=== PATIENT | male | born 1990 | race Two or more races ===

== ENCOUNTER 2016-12-02 02:16 | Emergency (ER) | payer OTHER ==
[2016-12-02] MEDS ORDERED: NS 0.9% 1000 ML* 2,000 ML IV ONE (02:31)
[2016-12-02] MEDS ORDERED: Morphine INJ* 2 MG/ML 1 ML CARPUJECT IV ONE (02:31)
[2016-12-02] MEDS ORDERED: Ondansetron INJ* 2 MG/ML VIAL IV ONE (02:31)
[2016-12-02] MEDS ORDERED: Acetaminophen TAB* 325 MG PO ONE ×2 (02:33→06:17)
[2016-12-02] MEDS ORDERED: Morphine INJ* 2 MG/ML 1 ML SYRINGE (TWO MG - NEW SYRINGE VERSION) ONE (03:00)
[2016-12-02 03:11] LABS: Hematocrit 45 % (42-52); Hemoglobin 15.6 g/dl (14.0-18.0); Mean Corpuscular HGB Conc 35 g/dl (31-36); Mean Corpuscular Hemoglobin 31 pg (27-31); Mean Corpuscular Volume 90 fL (80-94); Mean Platelet Volume 8 um3 (7.4-10.4); Red Cell Distribution Width 13 % (10.5-15); White Blood Count 6.6 10^3/ul (3.5-10.8)
[2016-12-02 03:26] LABS: Albumin 4.1 g/dL (3.2-5.2); BUN/Creatinine Ratio 15.5 (8-20); Calcium 8.8 mg/dL (8.6-10.3); EGFR African American 96.4 (>60); Globulin 2.4 g/dL (2-4); Potassium 3.6 mmol/L (3.5-5.0); Total Bilirubin 0.6 mg/dL (0.2-1.0); Total Protein 6.5 g/dL (6.4-8.9)
[2016-12-02 04:57] LABS: Urine Bacteria Absent (Absent); Urine Bilirubin Negative (Negative); Urine Glucose Negative (Negative); Urine Nitrite Negative (Negative)
[2016-12-02] MEDS ORDERED: Iohexol 300* (CONTRAST) 10 ML SDV IV ONE (05:36)
[2016-12-02] MEDS ORDERED: Ketorolac INJ* 30 MG/ML 1 ML VIAL IV PUSH ONE (06:08)
--- NOTE | 2016-12-02 06:21 | ED ---
Bria Ulloa Rebecca, scribed for Steve Silvermanuel on 12/02/16 at 0232 . Complex/Multi-Sys Presentation - HPI Summary HPI Summary: Pt is a 26 y/o M who presents to ED c/o N/V/D and fever. Sx began yesterday at approximately 1600 and have been progressively worsening since onset. 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 Additionally c/o myalgias and abdominal pain with associated pain being severe, ranked 8/10. Took Ibuprofen at 0200. Denies CP and sore throat. - History Of Current Complaint Chief Complaint: EDNauseaVomitDiarrh Hx Obtained From: Patient Onset/Duration: Lasting Hours, Still Present Severity Currently: Severe - 09/19 Location: Pain At: - Abdomen and myalgias Aggravating Factor(s): Nothing Alleviating Factor(s): Nothing Associated Signs And Symptoms: Positive: Nausea, Vomiting, Diarrhea, Abdominal Pain, Fever. Negative: Chest Pain - Allergies/Home Medications Allergies/Adverse Reactions: Allergies Allergy/AdvReac Type Severity Reaction Status Date / Time No Known Allergies Allergy Verified 12/02/16 02:21 PMH/Surg Hx/FS Hx/Imm Hx Endocrine/Hematology History: Denies: Hx Diabetes, Hx Systemic Lupus Erythematosus Cardiovascular History: Denies: Hx Congestive Heart Failure, Hx Hypertension, Hx Pacemaker/ICD GI History: Denies: Other GI Disorders History: Denies: Hx Renal Disease Musculoskeletal History: Denies: Hx Rheumatoid Arthritis Sensory History: Denies: Hx Hearing Aid Neurological History: Reports: Other Neuro Impairments/Disorders - Concussion syndrome Psychiatric History: Denies: Hx Panic Disorder - Cancer History Hx Chemotherapy: No Infectious Disease History: No Infectious Disease History: Denies: Traveled Outside the [place] in Last 30 Days - Family History Known Family History: Negative: Diabetes - Social History Alcohol Use: None Substance Use Type: Reports: Prescribed, Sedatives Smoking Status (MU): Never Smoked Tobacco Review of Systems Positive: Fever Negative: Sore Throat Negative: Chest Pain Positive: Abdominal Pain, Vomiting, Diarrhea, Nausea Positive: Myalgia All Other Systems Reviewed And Are Negative: Yes Physical Exam - Summary Physical Exam Summary: Appearance: Well appearing, no pain distress Skin: warm, dry, reflects adequate perfusion Head/face: normal Eyes: EOMI, AMANDA ENT: normal Neck: supple, nontender Respiratory: CTA, breath sounds present Cardiovascular: tachycardic, pulses symmetrical Abdomen: tenderness in the RLQ and LLQ, soft Bowel: present Musculoskeletal: normal, strength/ROM intact Neuro: normal, sensory motor intact, A&Ox3 Triage Information Reviewed: Yes Vital Signs On Initial Exam: Initial Vitals Temp Pulse Resp BP Pulse Ox 101.2 F 100 16 126/63 95 12/02/16 02:18 12/02/16 02:18 12/02/16 02:18 12/02/16 02:18 12/02/16 02:18 Vital Signs Reviewed: Yes Diagnostics - Vital Signs Vital Signs Temp Pulse Resp BP Pulse Ox 12/02/16 02:18 101.2 F 100 16 126/63 95 - Laboratory Lab Results: Lab Results 12/02/16 12/02/16 12/02/16 Range/Units 02:45 02:45 02:45 WBC 6.6 (3.5-10.8) 10^3/ul RBC 5.00 (4.0-5.4) 10^6/ul Hgb 15.6 (14.0-18.0) g/dl Hct 45 (42-52) % MCV 90 (80-94) fL MCH 31 (27-31) pg MCHC 35 (31-36) g/dl RDW 13 (10.5-15) % Plt Count 212 (150-450) 10^3/ul MPV 8 (7.4-10.4) um3 Neut % (Auto) 89.8 H (38-83) % Lymph % (Auto) 4.3 L (25-47) % Cascade % (Auto) 5.5 (1-9) % Eos % (Auto) 0.1 (0-6) % Baso % (Auto) 0.3 (0-2) % Absolute Neuts (auto) 5.9 (1.5-7.7) 10^3/ul Absolute Lymphs (auto) 0.3 L (1.0-4.8) 10^3/ul Absolute Monos (auto) 0.4 (0-0.8) 10^3/ul Absolute Eos (auto) 0 (0-0.6) 10^3/ul Absolute Basos (auto) 0 (0-0.2) 10^3/ul Absolute Nucleated RBC 0 10^3/ul Nucleated RBC % 0 INR (Anticoag Therapy) 0.96 (0.89-1.11) APTT 29.7 (26.0-36.3) seconds Sodium 132 L (133-145) mmol/L Potassium 3.6 (3.5-5.0) mmol/L Chloride 100 L (101-111) mmol/L Carbon Dioxide 26 (22-32) mmol/L Anion Gap 6 (2-11) mmol/L BUN 18 (6-24) mg/dL Creatinine 1.16 (0.67-1.17) mg/dL Est GFR ( Amer) 96.4 (>60) Est GFR (Non-Af Amer) 75.0 (>60) BUN/Creatinine Ratio 15.5 (8-20) Glucose 112 H (70-100) mg/dL Lactic Acid (0.5-2.0) mmol/L Calcium 8.8 (8.6-10.3) mg/dL Total Bilirubin 0.60 (0.2-1.0) mg/dL AST 22 (13-39) U/L ALT 24 (7-52) U/L Alkaline Phosphatase 51 (34-104) U/L Total Protein 6.5 (6.4-8.9) g/dL Albumin 4.1 (3.2-5.2) g/dL Globulin 2.4 (2-4) g/dL Albumin/Globulin Ratio 1.7 (1-3) Lipase 15 (11.0-82.0) U/L Urine Color Urine Appearance Urine pH (5-9) Ur Specific [place] (1.010-1.030) Urine Protein (Negative) Urine Ketones (Negative) Urine Blood (Negative) Urine Nitrate (Negative) Urine Bilirubin (Negative) Urine Urobilinogen (Negative) Ur Leukocyte Esterase (Negative) Urine WBC (Auto) (Absent) Urine RBC (Auto) (Absent) Urine Bacteria (Absent) Urine Glucose (Negative) Urine Ascorbic Acid (Negative) 12/02/16 12/02/16 Range/Units 02:45 04:35 WBC (3.5-10.8) 10^3/ul RBC (4.0-5.4) 10^6/ul Hgb (14.0-18.0) g/dl Hct (42-52) % MCV (80-94) fL MCH (27-31) pg MCHC (31-36) g/dl RDW (10.5-15) % Plt Count (150-450) 10^3/ul MPV (7.4-10.4) um3 Neut % (Auto) (38-83) % Lymph % (Auto) (25-47) % Cascade % (Auto) (1-9) % Eos % (Auto) (0-6) % Baso % (Auto) (0-2) % Absolute Neuts (auto) (1.5-7.7) 10^3/ul Absolute Lymphs (auto) (1.0-4.8) 10^3/ul Absolute Monos (auto) (0-0.8) 10^3/ul Absolute Eos (auto) (0-0.6) 10^3/ul Absolute Basos (auto) (0-0.2) 10^3/ul Absolute Nucleated RBC 10^3/ul Nucleated RBC % INR (Anticoag Therapy) (0.89-1.11) APTT (26.0-36.3) seconds Sodium (133-145) mmol/L Potassium (3.5-5.0) mmol/L Chloride (101-111) mmol/L Carbon Dioxide (22-32) mmol/L Anion Gap (2-11) mmol/L BUN (6-24) mg/dL Creatinine (0.67-1.17) mg/dL Est GFR ( Amer) (>60) Est GFR (Non-Af Amer) (>60) BUN/Creatinine Ratio (8-20) Glucose (70-100) mg/dL Lactic Acid 0.4 L (0.5-2.0) mmol/L Calcium (8.6-10.3) mg/dL Total Bilirubin (0.2-1.0) mg/dL AST (13-39) U/L ALT (7-52) U/L Alkaline Phosphatase (34-104) U/L Total Protein (6.4-8.9) g/dL Albumin (3.2-5.2) g/dL Globulin (2-4) g/dL Albumin/Globulin Ratio (1-3) Lipase (11.0-82.0) U/L Urine Color Mimi Urine Appearance Clear Urine pH 5.0 (5-9) Ur Specific [place] 1.038 H (1.010-1.030) Urine Protein 1+(30 mg/dl) H (Negative) Urine Ketones Trace H (Negative) Urine Blood Negative (Negative) Urine Nitrate Negative (Negative) Urine Bilirubin Negative (Negative) Urine Urobilinogen Negative (Negative) Ur Leukocyte Esterase Negative (Negative) Urine WBC (Auto) Trace(0-5/hpf) (Absent) Urine RBC (Auto) 1+(3-5/hpf) H (Absent) Urine Bacteria Absent (Absent) Urine Glucose Negative (Negative) Urine Ascorbic Acid * H (Negative) Result Diagrams: 12/02/16 02:45 12/02/16 02:45 Lab Statement: Any lab studies that have been ordered have been reviewed, and results considered in the medical decision making process. - Radiology CXR Xray Interpretation: No Acute Changes Radiology Interpretation Completed By: ED Physician - CT CT Abd/Pel CT Interpretation: No Acute Changes - There is no bowel obstruction, free air, or free fluid. Normal appendix noted. Negative for diverticulitis or colitis. Normal kidneys urinary tract and urinary bladder. Normal liver. Normal gallbladder. Normal spleen. Normal pancreas. Normal adrenal glands. Overall no acute intra-abdominal abnormalities. Note made of bilateral L5 spondylolyses with mild L5 on S1 spondylolisthesis. ED physician reviewed radiology report and agrees. CT Interpretation Completed By: Radiologist Re-Evaluation - Re-Evaluation First Eval Re-Evaluation Time: 06:15 Change: Improved Comment: Discussed CT results and the pt feels improved. Complex Multi-Symp Course/Dx Assessment/Plan: Pt is a 26 y/o M who presents to ED c/o N/V/D and fever. Sx began yesterday at approximately 1600 and have been progressively worsening since onset. 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 Additionally c/o myalgias and abdominal pain with associated pain being severe, ranked 8/10. Took Ibuprofen at 0200. Denies CP and sore throat. CXR and CT abd/ Pel reveal no acute findings. UA was done. In the ED course, pt received Tylenol , Toradol, Morphine, Zofran and fluids. Pt will be D/C to home with Dx of gastroenteritis and fever with Rx for Zofran and Protonix and a follow up with his PCP. He understands and agrees. - Diagnoses Differential Diagnoses/HQI/PQRI: Sepsis, Urinary Tract Infection, Other - appendicitis Provider Diagnoses: Gastroenteritis, Fever Discharge - Discharge Plan Condition: Stable Disposition: HOME Prescriptions: Ondansetron [Zofran 4 MG Odt] 4 mg PO TID #20 tab Pantoprazole TAB (NF) [Protonix TAB (NF)] 40 mg PO DAILY #14 tab Patient Education Materials: Gastroenteritis (ED), Fever in Adults (ED) Referrals: Nicki Thao MD [Primary Care Provider] - 3 Days The documentation as recorded by the Bria montoya Rebecca accurately reflects the service I personally performed and the decisions made by Herrera juarez Emmanuel.
[2016-12-02 06:47] VITALS: BP 121/46
--- NOTE | 2016-12-02 08:03 | RAD ---
INDICATION: Fever COMPARISON: None TECHNIQUE: PA and lateral views of the chest were obtained. FINDINGS: The heart and mediastinum are normal in size and contour. The lungs are grossly clear. There is no evidence of large pleural effusion. Visualized bones are normal for the patient's age. There is no radiographic evidence of free air beneath the diaphragm IMPRESSION: No radiographic evidence of acute cardiopulmonary disease.
--- NOTE | 2016-12-02 08:16 | RAD ---
Indication: Right lower quadrant tenderness Contrast: Administered 100.1 ml of OMNIPAQUE 300 mg/ml CT of the abdomen and pelvis was performed after oral and IV contrast administration. Coronal and sagittal reconstructed images were obtained. The lung bases demonstrate no pleural fluid, nodules or masses. Heart is of normal size without evidence of pericardial fluid. Liver is normal in size. No focal lesions or intrahepatic ductal dilatation is noted. The gallbladder demonstrates no calcified gallstones. The spleen is normal in size. No adrenal lesions are noted. The kidneys demonstrate symmetric nephrograms without hydronephrosis. No retroperitoneal lymphadenopathy is noted. CT of the pelvis demonstrates no retroperitoneal or pelvic lymphadenopathy. The appendix is visualized and is unremarkable. No dilated loops of bowel are noted. No hernias are noted. The prostate and seminal vesicles are unremarkable. There is spondylolisthesis of L5 on S1 due to bilateral spondylolysis. IMPRESSION: No abnormal masses or fluid collections are noted. Normal appendix. Spondylolysis of L5 on S1. There may be grade 1 spondylolisthesis present.
== END 2016-12-02 06:45 | disposition home or self-care (01) ==
LOC: ED 02:16
DX: K52.9 Noninfective gastroenteritis and colitis, unspecified (principal); R50.9 Fever, unspecified; R11.2 Nausea with vomiting, unspecified; R19.7 Diarrhea, unspecified
CPT/HCPCS: 36415; 71020; 74177; 80053; 81003; 81015; 83605; 83690; 85025; 85610; 85730; 96374; 96375; 99284; A9270-GY; J1885; J2270; J2405; Q9967